=== PATIENT | female | born 1960 | race Caucasian/White ===

== ENCOUNTER → 2024-02-17 12:27 | Outpatient (BNVA) | payer MEDICARE, OTHER, SELFPAY | PROVIDERS: PCP Neuromusculoskeletal Medicine & OMM; Referring Provider Neuromusculoskeletal Medicine & OMM; Visit Provider Nurse Practitioner Gerontology | DX: R33.8 Other retention of urine (principal); N99.89 Other postprocedural complications and disorders of genitourinary system | CPT/HCPCS: 99205 ==

== ENCOUNTER → 2024-03-02 13:48 | Outpatient (BNVA) | payer MEDICARE, OTHER, SELFPAY | PROVIDERS: PCP Neuromusculoskeletal Medicine & OMM; Referring Provider Neuromusculoskeletal Medicine & OMM; Visit Provider Nurse Practitioner Gerontology | DX: R33.8 Other retention of urine (principal); N99.89 Other postprocedural complications and disorders of genitourinary system | CPT/HCPCS: 51798; 99213 ==

== ENCOUNTER → 2024-03-30 13:59 | Outpatient (BNVA) | payer MEDICARE, OTHER, SELFPAY | PROVIDERS: PCP Neuromusculoskeletal Medicine & OMM; Referring Provider Neuromusculoskeletal Medicine & OMM; Visit Provider Nurse Practitioner Gerontology | DX: R33.8 Other retention of urine (principal); N99.89 Other postprocedural complications and disorders of genitourinary system | CPT/HCPCS: 51798; 99213 ==

== ENCOUNTER → 2024-07-07 14:56 | Outpatient (BNVA) | payer MEDICARE, OTHER, SELFPAY | PROVIDERS: PCP Neuromusculoskeletal Medicine & OMM; Visit Provider Nurse Practitioner Gerontology | DX: R33.8 Other retention of urine (principal); N99.89 Other postprocedural complications and disorders of genitourinary system | CPT/HCPCS: 51798; 99213 ==